=== PATIENT | female | born 1960 | race Caucasian/White ===

== ENCOUNTER 2018-05-27 13:04 | Outpatient (CLI) | payer OTHER | END 2018-05-27 13:05 | disposition home or self-care (01) | LOC: BICMAMMO 13:04 | PROVIDERS: ATTEND Obstetrics & Gynecology | DX: Z12.31 Encounter for screening mammogram for malignant neoplasm of breast (principal); N63.11 Unspecified lump in the right breast, upper outer quadrant; Z85.89 Personal history of malignant neoplasm of other organs and systems; Z80.3 Family history of malignant neoplasm of breast | CPT/HCPCS: 77063; 77067 ==

== ENCOUNTER 2018-06-04 09:52 | Outpatient (CLI) | payer OTHER ==
--- NOTE | 2018-06-04 11:13 | ULT ---
SONOGRAM RIGHT BREAST LIMITED: HISTORY: New right breast mass. FINDINGS: Sonographic evaluation of the superior lateral aspect of the right breast in region of mammographic a bnormality shows an irregular-shaped hypoechoic mass measuring up to 0.9 cm depth x 0.4 cm width. Th ere is posterior acoustic shadowing. Evaluation of the axilla shows a lymph node measuring up to 1.5 cm with a normal fatty hilum. IMPRESSION: New solid right breast mass. BIRADS category 4. Suspicious findings. Tissue sampling suggested. Findings were called to Dr. Granado. The patient is scheduled for sonographic-guided needl e biopsy. CODE CR POS: [facility]
--- NOTE | 2018-06-04 13:33 | ULT ---
SONOGRAPHIC GUIDED RIGHT BREAST MASS BIOPSY: HISTORY: Right breast mass. FINDINGS: After explaining the procedure and answering all questions, the skin was prepped and draped in the us ua sterile fashion. Sterile technique. Buffered local anesthesia, sonographic guidance, and a later al approach were used to carefully advance a 14 gauge biopsy needle to the level of the hypoechoic ma ss at the 11 o'clock position right breast. Position was confirmed with sonography. A total of 3 co re biopsy specimens were obtained and eventually submitted to pathology for evaluation. Localization clip was placed in the biopsy bed under sonographic control. The patient tolerated the procedure we ll and was eventually discharged in good condition. IMPRESSION: Technically successful sonographic guided biopsy right breast mass. Pathology is pending. POS: [facility]
== END 2018-06-04 09:53 | disposition home or self-care (01) ==
LOC: BICMAMMO 09:52
PROVIDERS: ATTEND Obstetrics & Gynecology
DX: N63.11 Unspecified lump in the right breast, upper outer quadrant (principal); Z80.3 Family history of malignant neoplasm of breast; Z85.89 Personal history of malignant neoplasm of other organs and systems
CPT/HCPCS: 19100; 76942; 88305; G0279

== ENCOUNTER 2019-08-16 12:27 | Outpatient (CLI) | payer OTHER ==
--- NOTE | 2019-08-16 15:38 | MMO ---
Bilateral MAMMO Bilat Screen [facility]. CLINICAL HISTORY: Patient is 58 years old and is seen for screening. The patient has the following family history of breast cancer: maternal grandmother, at age 82. The patient has a history of Skin cancer. The patient has a history of right Ultrasound Guided Core Biopsy in June, - benign. VIEWS: The views performed were: bilateral craniocaudal with tomosynthesis and bilateral mediolateral oblique with tomosynthesis. FILMS COMPARED: The present examination has been compared to prior imaging studies performed at [facility] on 04/20/2015, 04/30/2016, 05/27/2018 and 06/04/2018. This study has been interpreted with the assistance of computer-aided detection. MAMMOGRAM FINDINGS: The breasts are heterogeneously dense, which could obscure a lesion on mammography. There is a stable mass with associated biopsy clip seen in the right breast. There are no suspicious masses, suspicious calcifications, or new areas of architectural distortion. IMPRESSION: THERE IS NO MAMMOGRAPHIC EVIDENCE OF MALIGNANCY. A ROUTINE FOLLOW-UP MAMMOGRAM IN 1 YEAR IS RECOMMENDED. THE RESULTS OF THIS EXAM WERE SENT TO THE PATIENT. ACR BI-RADS Category 2 - Benign finding MAMMOGRAPHY NOTE: 1. A negative mammogram report should not delay a biopsy if a dominant of clinically suspicious mass is present. 2. Approximately 10% to 15% of breast cancers are not detected by mammography. 3. Adenosis and dense breasts may obscure an underlying neoplasm. Reported by: BRIA ARANDA MD Electonically Signed: [id number]
== END 2019-08-16 12:28 | disposition home or self-care (01) ==
LOC: BICMAMMO 12:27
PROVIDERS: ATTEND Obstetrics & Gynecology
DX: Z12.31 Encounter for screening mammogram for malignant neoplasm of breast (principal); Z85.828 Personal history of other malignant neoplasm of skin; Z80.3 Family history of malignant neoplasm of breast; Z91.89 Other specified personal risk factors, not elsewhere classified
CPT/HCPCS: 77063; 77067

== ENCOUNTER 2020-08-16 12:56 | Outpatient (CLI) | payer OTHER | END 2020-08-16 12:57 | disposition home or self-care (01) | LOC: BICMAMMO 12:56 | PROVIDERS: ATTEND Family Medicine | DX: Z12.31 Encounter for screening mammogram for malignant neoplasm of breast (principal); Z80.3 Family history of malignant neoplasm of breast; Z91.89 Other specified personal risk factors, not elsewhere classified; Z85.828 Personal history of other malignant neoplasm of skin | CPT/HCPCS: 77063; 77067 ==

== ENCOUNTER 2021-12-24 08:02 | Outpatient (CLI) | payer BC | END 2021-12-24 08:03 | disposition home or self-care (01) | LOC: BICMAMMO 08:02 | PROVIDERS: ATTEND Obstetrics & Gynecology | DX: Z12.31 Encounter for screening mammogram for malignant neoplasm of breast (principal); Z80.3 Family history of malignant neoplasm of breast; Z85.828 Personal history of other malignant neoplasm of skin; Z91.89 Other specified personal risk factors, not elsewhere classified | CPT/HCPCS: 77063; 77067 ==

== ENCOUNTER 2022-12-29 07:52 | Outpatient (CLI) | payer BC | END 2022-12-29 07:53 | disposition home or self-care (01) | LOC: BICMAMMO 07:52 | PROVIDERS: ATTEND Family Medicine | DX: N63.41 Unspecified lump in right breast, subareolar (principal) | CPT/HCPCS: 19083; 38505; 77066; G0279 ==

== ENCOUNTER 2023-01-15 08:00 | Outpatient (CLI) | payer BC | END 2023-01-15 08:01 | disposition home or self-care (01) | LOC: PET 08:00 | PROVIDERS: ATTEND Internal Medicine Hematology & Oncology | DX: C50.811 Malignant neoplasm of overlapping sites of right female breast (principal); R59.0 Localized enlarged lymph nodes | CPT/HCPCS: 78815; A9552 ==

== ENCOUNTER 2023-01-23 06:03 | Day surgery (SDC) | payer BC ==
[2023-01-21 14:01] VITALS: BMI 28.1
[2023-01-23] MEDS ORDERED: CEFAZOLIN 2 GM VIAL ONE (06:15)
[2023-01-23] MEDS ORDERED: Sodium Chloride 0.9% 100 ML ONE (06:15)
[2023-01-23] MEDS ORDERED: Ketorolac Tromethamine 30 MG/ML VIAL ONE (06:15)
[2023-01-23] MEDS ORDERED: Acetaminophen 500 MG TAB ONE (06:15)
[2023-01-23] MEDS ORDERED: Lidocaine 1% (PF) 30 ML VIAL ONE (06:44)
[2023-01-23] MEDS ORDERED: Bupivacaine 0.25% HCL 30 ML VIAL ONE (06:44)
[2023-01-23] MEDS ORDERED: EPINEPHrine 1 MG/ML AMP ONE (06:44)
[2023-01-23] MEDS ORDERED: Ketamine 50 MG/ML (10ML VIAL) ONE (06:48)
[2023-01-23] MEDS ORDERED: fentaNYL 50 mcg/mL 1 mL Vial ONE (06:48)
[2023-01-23] MEDS ORDERED: Midazolam HCl 2 mg/2 ml Vial ONE (06:48)
[2023-01-23] MEDS ORDERED: Propofol 500 MG/50 ML VIAL ONE (06:48)
[2023-01-23] MEDS ORDERED: Famotidine/PF 20 mg/2ml Vial ONE (07:00)
[2023-01-23] MEDS ORDERED: Scopolamine 1.5 mg/72 hour Patch ONE (07:14)
[2023-01-23] MEDS ORDERED: Metoclopramide HCl 10 MG/2 ML VIAL ONE (07:37)
[2023-01-23] MEDS ORDERED: Dexamethasone 20 MG/5 ML VIAL ONE (07:37)
[2023-01-23] MEDS ORDERED: PROPOFOL 200 MG/20 ML VIAL ONE (07:37)
[2023-01-23] MEDS ORDERED: Lidocaine 1% PF 5 ML VIAL ONE (07:37)
[2023-01-23] MEDS ORDERED: Ondansetron PF 4 MG/2 ML Vial ONE (07:37)
== END 2023-01-23 09:14 | disposition home or self-care (01) ==
LOC: SDC 06:03
PROVIDERS: ATTEND Specialist
PROC: 0JHD0WZ Insertion of Totally Implantable Vascular Access Device into Right Upper Arm Subcutaneous Tissue and Fascia, Open Approach (ICD-10-PCS; principal; 2023-01-23)
DX: C50.111 Malignant neoplasm of central portion of right female breast (principal); C17.0 Malignant neoplasm of duodenum; E07.9 Disorder of thyroid, unspecified; Z17.0 Estrogen receptor positive status [ER+]; Z91.040 Latex allergy status; Z88.8 Allergy status to other drugs, medicaments and biological substances; Z79.899 Other long term (current) drug therapy
CPT/HCPCS: 71045; C1788; J0171; J1100; J1642; J1885; J2001; J2250; J2405; J2704; J2765; J3010; J3490; S0020; S0028

== ENCOUNTER 2023-07-03 14:32 | Outpatient (CLI) | payer BC ==
[2023-07-03 16:11] LABS: Hematocrit 37.3 % (34.9-44.5); Hemoglobin 12.4 g/dL (12.0-15.5); Mean Corpuscular HGB CONC 33.2 g/dL (32.0-36.0); Mean Corpuscular Hemoglobin 31.2 pg (27.0-33.0); Mean Corpuscular Volume 93.7 fl (81.6-98.3); Mean Platelet Volume 10.8 fl (7.4-10.4); Platelet Count 316 10x3/uL (150-450); RBC Distribution Width 13.2 % (11.5-14.5); Red Blood Cell (RBC) Count 3.98 10x6/uL (3.90-5.03); White Blood Cell (WBC) Count 6.2 10x3/uL (3.5-10.5)
[2023-07-03 16:29] LABS: Anion Gap 16 mmol/L (10-20); BUN (Urea Nitrogen) 16 mg/dL (9.8-20.1); Calc. Creatinine Clearance 0 mL/min (70-130); Calcium 9.7 mg/dL (7.8-10.44); Carbon Dioxide 24 mmol/L (23-31); Chloride 106 mmol/L (98-107); Estimated GFR 98; Glucose 83 mg/dL (80-115); Potassium 3.8 mmol/L (3.5-5.1); Sodium 142 mmol/L (136-145)
== END 2023-07-03 14:33 | disposition home or self-care (01) ==
LOC: LABBT 14:32
PROVIDERS: ATTEND Specialist
DX: Z01.818 Encounter for other preprocedural examination (principal); C50.911 Malignant neoplasm of unspecified site of right female breast
CPT/HCPCS: 71046; 80048; 85027

== ENCOUNTER 2023-07-07 07:14 | Day surgery (SDC) | payer BC ==
[2023-07-03 14:54] VITALS: BMI 27.6
[2023-07-07] MEDS ORDERED: Acetaminophen 500 MG TAB ONE (09:24)
[2023-07-07] MEDS ORDERED: Midazolam HCl 2 mg/2 ml Vial ONE (09:58)
[2023-07-07] MEDS ORDERED: PROPOFOL 20 ML ONE (09:58)
[2023-07-07] MEDS ORDERED: fentaNYL PF 100 MCG/2 ML SYRINGE ONE (09:58)
[2023-07-07] MEDS ORDERED: Lidocaine 1% PF 5 ML VIAL ONE (09:59)
[2023-07-07] MEDS ORDERED: Ondansetron PF 4 MG/2 ML Vial ONE ×2 (09:59→14:27)
[2023-07-07] MEDS ORDERED: Dexamethasone 4 mg/ml Vial ONE (09:59)
[2023-07-07] MEDS ORDERED: Sodium Chloride 0.9% 100 ML ONE (10:41)
[2023-07-07] MEDS ORDERED: CEFAZOLIN 2 GM VIAL ONE (10:41)
[2023-07-07] MEDS ORDERED: Scopolamine 1 mg/72 hour Patch ONE (10:41)
[2023-07-07] MEDS ORDERED: EPINEPHrine 1 MG/ML VIAL ONE (11:37)
[2023-07-07] MEDS ORDERED: Isosulfan Blue 50 MG/5 ML VIAL ONE (11:37)
[2023-07-07] MEDS ORDERED: Bupivacaine 0.25% HCL 30 ML VIAL ONE (11:38)
[2023-07-07] MEDS ORDERED: Lidocaine 2% PF 5 ML VIAL ONE (11:38)
[2023-07-07] MEDS ORDERED: PHENYLEPHRINE-NS 100 MCG/ML 10 ML SYRINGE ONE (12:14)
[2023-07-07] MEDS ORDERED: ePHEDrine Sulfate 50 MG/10 ML VIAL ONE (12:25)
[2023-07-07] MEDS ORDERED: fentaNYL 50 mcg/mL 1 mL Vial ONE (14:36)
== END 2023-07-07 16:00 | disposition home or self-care (01) ==
LOC: SDC 07:14
PROVIDERS: ATTEND Specialist
PROC: 0HBT0ZZ Excision of Right Breast, Open Approach (ICD-10-PCS; principal; 2023-07-07)
PROC: 07B50ZZ Excision of Right Axillary Lymphatic, Open Approach (ICD-10-PCS; principal; 2023-07-07)
DX: C50.811 Malignant neoplasm of overlapping sites of right female breast (principal); C77.3 Secondary and unspecified malignant neoplasm of axilla and upper limb lymph nodes; F32.A Depression, unspecified; M06.9 Rheumatoid arthritis, unspecified; G43.909 Migraine, unspecified, not intractable, without status migrainosus; K57.30 Diverticulosis of large intestine without perforation or abscess without bleeding; Z79.82 Long term (current) use of aspirin; Z79.890 Hormone replacement therapy; Z79.899 Other long term (current) drug therapy; Z85.828 Personal history of other malignant neoplasm of skin; Z98.890 Other specified postprocedural states; Z90.89 Acquired absence of other organs; Z96.641 Presence of right artificial hip joint; Z88.8 Allergy status to other drugs, medicaments and biological substances; Z91.013 Allergy to seafood; Z91.040 Latex allergy status; Z88.6 Allergy status to analgesic agent; Z88.5 Allergy status to narcotic agent; Z17.0 Estrogen receptor positive status [ER+]; Z88.1 Allergy status to other antibiotic agents; Z91.038 Other insect allergy status
CPT/HCPCS: 76098; 88307; 88342; C1713; J0171; J0665; J1100; J2001; J2250; J2405; J2704; J3010; J3490; Q9968

== ENCOUNTER 2023-07-07 08:00 | Day surgery (SDC) | payer BC | END 2023-07-07 23:59 | disposition home or self-care (01) | LOC: NM 08:00 | PROVIDERS: ATTEND Specialist | DX: C50.111 Malignant neoplasm of central portion of right female breast (principal) | CPT/HCPCS: 78195; A9541 ==

== ENCOUNTER 2023-11-18 14:11 | Outpatient (CLI) | payer BC | END 2023-11-18 14:12 | disposition home or self-care (01) | LOC: BICMAMMO 14:11 | PROVIDERS: ATTEND Internal Medicine Hematology & Oncology | DX: Z13.820 Encounter for screening for osteoporosis (principal); C50.811 Malignant neoplasm of overlapping sites of right female breast; D50.0 Iron deficiency anemia secondary to blood loss (chronic) | CPT/HCPCS: 77080 ==